=== PATIENT | female | born 1970 | race Caucasian/White ===

== ENCOUNTER 2016-09-26 07:21 | Emergency (ER) | payer BC ==
[~2016-09-26] VITALS: Ht 175.3 cm; Wt 95.2 kg
[2016-09-26 07:34] VITALS: TEMP 36.5; Ht 175.3 cm; Wt 95.2 kg
[2016-09-26] MEDS ORDERED: OMEG10007 PO (07:47)
[2016-09-26] MEDS ORDERED: SIMV5TAB2 PO (07:47)
[2016-09-26] MEDS ORDERED: ALUMINUM/MAGNESIUM/SIMETH (MAALOX MAX) 30 ML UDC PO STA (08:13)
[2016-09-26] MEDS ORDERED: MoRPHine SULFATE 10 MG/ML CARP/VIAL IV PRN (08:15)
[2016-09-26] MEDS ORDERED: ONDANSETRON INJ 2 MG/ML 2 ML VIAL IV PRN (08:15)
[2016-09-26 08:31] LABS: HEMATOCRIT 37.8 % (37-47); MEAN CELL VOLUME 76.5 fL (80-100); MEAN CORPUSCULAR HEMOGLOBIN 26.7 pg (25-34); MEAN CORPUSCULAR HGB CONC 34.9 g/dl (32-36); PLATELET COUNT 430 K/uL (130-400); RED BLOOD COUNT 4.94 M/uL (4.2-5.4); WHITE BLOOD COUNT 9.86 K/uL (4.8-10.8)
--- NOTE | 2016-09-26 08:31 | EMERGENCY ROOM VISIT NOTE ---
History Report prepared by Irene: Mateo Nunez Under the Supervision of: Dr. Bennie Gallego M.D. First contact with patient: 08:10 Chief Complaint: VOMITING Stated Complaint: HEART BURN,VOMITING Nursing Triage Summary: abd pain, nausea, vomiting. States ate [place] food yesterday, not sure if it is related to the food or something else per pt. History of Present Illness The patient is a 46 year old female who presents to the Emergency Room with complaints constant burning epigastric pain. The pain is consistent with heart burn. The patient experienced the worst heart burn of her life yesterday evening , which caused her to be short of breath. The pain improved on its own until later that night. She woke up in the middle of the night and experienced vomiting. The patient now has the constant abdominal pain as well as nausea. The patient does not feel burning in her chest. She does have some radiation to her back. The patient denies any melena or blood in her stools. The patient took Ranitidine, which did not help. The patient did not have any alcohol yesterday. She occasionally uses NSAIDS, but not very often. She does not have a history of bleeding disorders. Source of History: patient Onset: yesterday evening Position: abdomen (epigastrium) Quality: burning Timing: constant Associated Symptoms: + SOB, + back pain, + nausea, + vomiting, No hematochezia, No melena Review of Systems All systems have been listed, reviewed, and are negative other than those previously mentioned. Please see Additional Medical History Sheet. Past Medical & Surgical Surgical Problems: (1) Previous section Family History Diabetes mellitus Hypertension Social History Smoking Status: Never Smoker Alcohol Use: none Occupation Status: employed Current/Historical Medications Scheduled Docusate Sodium (Colace), 100 MG PO BID Fish Oil ([place]-3), 1 CAP PO DAILY Simvastatin (Zocor), Unknown Dose PO QPM Scheduled PRN Ondasetron Odt (Zofran Odt), 4 MG SL Q4 PRN for nausea Oxycodone Immediate Rel Tab (Roxicodone Ir), 1-2 TAB PO Q4H PRN for Severe Pain Allergies Coded Allergies: No Known Allergies (Unverified Allergy, Unknown, 08/29/04) Physical Exam Vital Signs Date Time Temp Pulse Resp B/P Pulse Ox O2 Delivery O2 Flow Rate FiO2 09/26/16 14:53 66 18 169/95 97 09/26/16 13:40 58 18 152/96 97 Room Air 09/26/16 12:44 72 09/26/16 12:02 75 18 139/93 100 Room Air 09/26/16 11:28 78 18 172/111 100 Room Air 09/26/16 10:12 74 18 174/95 100 Room Air 09/26/16 09:00 75 18 123/84 98 Room Air 09/26/16 08:09 71 09/26/16 08:05 74 170/98 09/26/16 07:34 36.5 83 16 191/120 100 Room Air Physical Exam GENERAL: Patient appears to be in moderate distress. Patient awake, alert, oriented x 3. Patient follows commands. Patient does not appear toxic. Patient is adequately hydrated and well-nourished. SKIN: No erythema, pallor, cyanosis or rash HEENT: Normal head, pupils equal, reactive to light and accommodation. Ears normal. Oral cavity and posterior pharynx appear normal. Neck: Without adenopathy, no neck vein distention. LUNGS: Clear to auscultation. No wheezes, no rales, no rhonchi. HEART: No murmurs. No gallops. No rubs ABDOMEN: No masses, no rebound, no hepatomegaly or splenomegaly. Vague epigastric tenderness. EXTREMITIES: No signs of trauma. No pedal or pretibial edema. No calf or thigh tenderness. NEUROLOGIC: Cranial nerves II-XII within normal limits. No gross motor sensory function deficits. Medical Decision & Procedures ER Provider Diagnostic Interpretation: US results are interpretations by the radiologist and per my review. BILIARY ULTRASOUND CLINICAL HISTORY: Right lower quadrant abdominal pain COMPARISON STUDY: No previous studies for comparison. FINDINGS: The pancreas appears sonographically normal. Multiple gallstones are visualized. The common bile duct at the upper limits of normal in size measuring 6 mm. There is no right-sided hydronephrosis. No hepatic masses are visualized. There is minimal ductal prominence at the level of the krystal hepatis IMPRESSION: 1. Cholelithiasis. 2. Minimal ductal prominence at the level of the krystal hepatis. 6 mm common bile duct. 3. Ultrasonographically normal pancreas. No hepatic masses identified. Electronically signed by: Dorian Obrien M.D. 09/26/2016 12:31 PM Dictated Date/Time: 09/26/2016 12:29 PM Laboratory Results 09/26/16 07:54 09/26/16 07:54 Test 09/26/16 07:54 09/26/16 08:33 Red Blood Count 4.94 M/uL (4.2-5.4) Mean Corpuscular Volume 76.5 fL (80-100) Mean Corpuscular Hemoglobin 26.7 pg (25-34) Mean Corpuscular Hemoglobin Concent 34.9 g/dl (32-36) RDW Standard Deviation 43.1 fL (36.4-46.3) RDW Coefficient of Variation 15.5 % (11.5-14.5) Mean Platelet Volume 9.0 fL (7.4-10.4) Anion Gap 11.0 mmol/L (3-11) Est Creatinine Clear Calc Drug Dose 100.5 ml/min Estimated GFR () 94.6 Estimated GFR (Non- 81.6 BUN/Creatinine Ratio 10.8 (10-20) Calcium Level 9.1 mg/dl (8.5-10.1) Total Bilirubin 1.2 mg/dl (0.2-1) Aspartate Amino Transf (AST/SGOT) 365 U/L (15-37) Alanine Aminotransferase (ALT/SGPT) 390 U/L (12-78) Alkaline Phosphatase 93 U/L (45-117) Total Protein 7.5 gm/dl (6.4-8.2) Albumin 4.0 gm/dl (3.4-5.0) Globulin 3.5 gm/dl (2.5-4.0) Albumin/Globulin Ratio 1.1 (0.9-2) Lipase 219 U/L (73-393) Urine Color DK YELLOW Urine Appearance CLEAR (CLEAR) Urine pH 5.5 (4.5-7.5) Urine Specific [place] 1.021 (1.000-1.030) Urine Protein 1+ (NEG) Urine Glucose (UA) 2+ (NEG) Urine Ketones 2+ (NEG) Urine Occult Blood 3+ (NEG) Urine Nitrite NEG (NEG) Urine Bilirubin NEG (NEG) Urine Urobilinogen NEG (NEG) Urine Leukocyte Esterase NEG (NEG) Urine WBC (Auto) 1-5 /hpf (0-5) Urine RBC (Auto) 10-30 /hpf (0-4) Urine Hyaline Casts (Auto) 1-5 /lpf (0-5) Urine Epithelial Cells (Auto) >30 /lpf (0-5) Urine Bacteria (Auto) 1+ (NEG) Urine Test NEG (NEG) Laboratory results as stated above per my review. Medications Administered Medications (Trade) Dose Ordered Sig/Mike Route Start Time Stop Time Status Last Admin Dose Admin Al Hydrox/Mg Hydrox/Simethicone (Maalox Max Susp) 30 ml NOW STAT PO 09/26/16 08:13 09/26/16 08:20 DC 09/26/16 08:29 30 ML Morphine Sulfate (MoRPHine SULFATE INJ) 6 mg PRN PRN IV 09/26/16 08:15 10/10/16 08:14 09/26/16 08:29 6 MG Ondansetron HCl (Zofran Inj) 4 mg Q4H PRN IV 09/26/16 08:15 10/26/16 08:14 09/26/16 08:29 4 MG Morphine Sulfate (MoRPHine SULFATE INJ) 4 mg STK-MED ONCE .ROUTE 09/26/16 11:30 09/26/16 11:31 DC 09/26/16 11:40 4 MG Morphine Sulfate 2 mg 2 mg STK-MED ONCE .ROUTE 09/26/16 11:30 09/26/16 11:31 DC 09/26/16 11:40 2 MG Sodium Chloride (Nss 1000ml) 1,000 ml @ 1,000 mls/hr Q1H ONCE IV 09/26/16 12:45 09/26/16 13:44 DC 09/26/16 12:52 1,000 MLS/HR ED Course 0812: Past medical records reviewed. The patient was evaluated in room B9. A complete history and physical examination was performed. 0813: Maalox Max 30 ml PO. 0815: Zofran 4 mg IV, Morphine Sulfate 6 mg IV. 1245: NSS 1000 ml @ 1000 mls/hr. 1330: The patient's pain is now 5/10. She will be going to ultrasound shortly. 1304: The patient is feeling a little better. I discussed the possibility of a cholecystectomy. 1430: The [place] Prescription Drug Monitoring Program was reviewed regarding this patient. No issues identified. 1435: Upon reevaluation, the patient appeared to have improvement of her symptoms. I discussed today's findings with her. She verbalized agreement of the treatment plan. She was discharged home. Medical Decision I considered multiple diagnoses including GERD, esophagitis, peptic/gastric ulcer disease, gastritis, anemia, pancreatitis. Multiple labs, urinalysis and imaging were obtained. The patient has some blood in her urine. Liver enzymes are elevated. The patient has stones in her gallbladder. I believe she has cholelithiasis. She does not want to have her gallbladder taken out today but I believe that she will most likely require that procedure in the near future. In the meantime, she is to avoid any fried or fatty foods. She will be given pain medication to be taken when necessary. She is to follow-up with her family physician this coming week. [place] Drug Monitoring Program Search Results: patient reviewed within database, no issues identified Impression Primary Impression: Cholelithiasis Scribe Attestation The scribe's documentation has been prepared under my direction and personally reviewed by me in its entirety. I confirm that the note above accurately reflects all work, treatment, procedures, and medical decision making performed by me. Departure Information Dispostion Home / Self-Care Prescriptions Ondasetron Odt (ZOFRAN ODT) 4 Mg Tab 4 MG SL Q4 Y for nausea, #10 TAB Prov: Bennie Gallego M.D. 09/26/16 Docusate Sodium (COLACE) 100 Mg Cap 100 MG PO BID, #20 CAP Prov: Bennie Gallego M.D. 09/26/16 Oxycodone Immediate Rel Tab (ROXICODONE IR) 5 Mg Tab 1-2 TAB PO Q4H Y for Severe Pain, #20 TAB Prov: Bennie Gallego M.D. 09/26/16 Referrals No Doctor, Assigned (PCP) Forms HOME CARE DOCUMENTATION FORM, IMPORTANT VISIT INFORMATION Patient Instructions My [facility] [employer] Additional Instructions Drink extra fluids 1-2 OxyIR every 4 hours as needed for moderate to severe pain. 1 Colace twice a day 1 Zofran every 4 hours as needed for nausea. Avoid all fried or fatty foods. Follow-up with your family physician this coming week.
[2016-09-26 08:38] LABS: BUN/CREATININE RATIO 10.8 (10-20); CALCIUM 9.1 mg/dl (8.5-10.1); CREATININE 0.85 mg/dl (0.60-1.20); POTASSIUM 3.5 mmol/L (3.5-5.1)
[2016-09-26 08:41] LABS: ALB/GLOB RATIO 1.1 (0.9-2)
[2016-09-26 08:51] LABS: URINE APPEARANCE CLEAR (CLEAR); URINE BILIRUBIN NEG (NEG); URINE COLOR DK YELLOW; URINE NITRITE NEG (NEG); URINE PH 5.5 (4.5-7.5); URINE SPECIFIC GRAVITY 1.021 (1.000-1.030); UROBILINOGEN NEG (NEG)
[2016-09-26 08:57] LABS: MANUAL MICROSCOPIC REQUIRED? NO; REVIEW REQ? NO; URINE EPITHELIAL CELL AUTO >30 /lpf (0-5); ZZUR CULT IF INDIC CLEAN CATCH YES
[2016-09-26] MEDS ORDERED: MoRPHine SULFATE 2 MG/ML CARP ONE (11:30)
[2016-09-26] MEDS ORDERED: MoRPHine SULFATE 4 MG/ML 1 ML CARP\\VIAL ONE (11:30)
--- NOTE | 2016-09-26 12:33 | DIAGNOSTIC IMAGING REPORT ---
BILIARY ULTRASOUND CLINICAL HISTORY: Right lower quadrant abdominal pain COMPARISON STUDY: No previous studies for comparison. FINDINGS: The pancreas appears sonographically normal. Multiple gallstones are visualized. The common bile duct at the upper limits of normal in size measuring 6 mm. There is no right-sided hydronephrosis. No hepatic masses are visualized. There is minimal ductal prominence at the level of the krystal hepatis IMPRESSION: 1. Cholelithiasis. 2. Minimal ductal prominence at the level of the krystal hepatis. 6 mm common bile duct. 3. Ultrasonographically normal pancreas. No hepatic masses identified. Electronically signed by: Dorian Obrien M.D. 09/26/2016 12:31 PM Dictated Date/Time: 09/26/2016 12:29 PM
[2016-09-26] MEDS ORDERED: SODIUM CHLORIDE 0.9% 1000ML 1,000 ML IV ONE (12:45)
[2016-09-26] MEDS ORDERED: OXYC1TAB3 PO (14:27)
[2016-09-26] MEDS ORDERED: DOCU-94 PO (14:41)
[2016-09-26] MEDS ORDERED: ONDA4TAB10 SL (14:41)
[2016-09-26 14:53] VITALS: BP 169/95; PULSE 66; O2SAT 97
== END 2016-09-26 14:55 | disposition home or self-care (01) ==
LOC: C.EDB 07:22
DX: K80.20 Calculus of gallbladder without cholecystitis without obstruction (principal)

== ENCOUNTER 2016-09-29 10:50 | Emergency (ER) | payer BC ==
[~2016-09-29] VITALS: Ht 167.6 cm; Wt 94.9 kg
[~2016-09-29 10:50] MED LIST: DOCU-94 PO; OMEG10007 PO; ONDA4TAB10 SL; OXYC1TAB3 PO; SIMV5TAB2 PO
[2016-09-29 10:59] VITALS: TEMP 37.3; Ht 167.6 cm; Wt 94.9 kg
[2016-09-29] MEDS ORDERED: ACET-749 PO ×2 (11:20→15:41)
[2016-09-29] MEDS ORDERED: SODIUM CHLORIDE 0.9% 1000ML 1,000 ML IV STA (11:35)
[2016-09-29 11:47] LABS: BASO % 0.3 %; BASO ABS # 0.03 K/uL (0-0.2); COMPLETE YES; EOS % 2.5 %; HEMATOCRIT 38.5 % (37-47); IG% 0.3 %; LYMPH % 15.1 %; LYMPH ABS # 1.79 K/uL (1.2-3.4); MEAN CELL VOLUME 78.1 fL (80-100); MEAN CORPUSCULAR HGB CONC 34.5 g/dl (32-36); MEAN PLATELET VOLUME 8.8 fL (7.4-10.4); MONO % 6.7 %; NEUT % 75.1 %; PLATELET COUNT 459 K/uL (130-400); RED BLOOD COUNT 4.93 M/uL (4.2-5.4); WHITE BLOOD COUNT 11.82 K/uL (4.8-10.8)
[2016-09-29] MEDS ORDERED: ONDANSETRON INJ 2 MG/ML 2 ML VIAL IV STA (11:49)
[2016-09-29] MEDS ORDERED: MoRPHine SULFATE 10 MG/ML CARP/VIAL IV STA (11:49)
[2016-09-29 12:11] LABS: BUN/CREATININE RATIO 8.1 (10-20); CALCIUM 9.6 mg/dl (8.5-10.1); CREATININE 0.81 mg/dl (0.60-1.20); POTASSIUM 3.6 mmol/L (3.5-5.1)
[2016-09-29] MEDS ORDERED: OPTIRAY 320 IV PRN (12:15)
--- NOTE | 2016-09-29 12:33 | EMERGENCY ROOM VISIT NOTE ---
History Report prepared by Irene: James Ko Under the Supervision of: Dr. Javier Shrestha M.D. First contact with patient: 11:15 Chief Complaint: ABDOMINAL PAIN Stated Complaint: GALLBLADDER PAIN Nursing Triage Summary: Was here wednesday for "gallbladder issues". Pt cannot control pain with prescribed pain meds. Has an appt to consult with surgeon. Abd pain- epigastric. Nausea. History of Present Illness The patient is a 46 year old female who presents to the Emergency Room with complaints of bilateral upper abdominal pain starting a few days ago and worsening this morning. The patient was evaluated in the Emergency Room 3 days ago and was diagnosed with gallstones. She is scheduled to have a surgical consult tomorrow. She currently rates a pain intensity of 8/10. She reports pain radiation to the back. She was prescribed Oxycodone in the Emergency Room but has not been taking it. She has been taking Tylenol with codeine with some relief. The patient denies fevers, chills, or any other complaints. Source of History: patient Onset: a few days ago Position: abdomen (bilateral upper) Symptom Intensity: 8/10 Timing: worsening Modifying Factors (Relieving): other (Tylenol with codeine with some relief) Associated Symptoms: No chills, No fevers Review of Systems See HPI for pertinent positives & negatives. A total of 10 systems reviewed and were otherwise negative. Past Medical & Surgical Surgical Problems: (1) Previous section Family History Diabetes mellitus Hypertension Social History Smoking Status: Former Smoker Alcohol Use: none Occupation Status: employed Current/Historical Medications Scheduled Docusate Sodium (Colace), 100 MG PO BID Fish Oil ([place]-3), 1 CAP PO DAILY Simvastatin (Zocor), Unknown Dose PO QPM Scheduled PRN Acetaminophen/Codeine (Tylenol W/Codeine #3), 1 TAB PO for Pain Acetaminophen/Codeine (Tylenol W/Codeine #3), 1-2 TABS PO Q6 PRN for Pain Ondasetron Odt (Zofran Odt), 4 MG SL Q4 PRN for nausea Allergies Coded Allergies: Oxycodone (Verified Allergy, Unknown, ., 09/29/16) Physical Exam Vital Signs Date Time Temp Pulse Resp B/P Pulse Ox O2 Delivery O2 Flow Rate FiO2 09/29/16 15:57 77 18 136/96 97 Room Air 09/29/16 14:47 71 18 146/97 99 Room Air 09/29/16 12:51 96 16 147/92 98 Room Air 09/29/16 11:57 78 09/29/16 10:59 37.3 101 17 154/102 98 Room Air Physical Exam GENERAL: Patient is a healthy-appearing well-nourished HEAD: Normocephalic atraumatic EYES: Ocular movements intact pupils equal and react to light OROPHARYNX mucous membranes are moist no exudates present no erythema or edema present NECK: Supple no nuchal rigidity CHEST: Good equal expansion LUNGS: Clear and equal to auscultation CARDIAC: Normal S1 and S2 ABDOMEN: Soft, minimal tenderness in right upper quadrant, no guarding BACK: No CVA tenderness EXTREMITIES: No pain upon palpation normal muscle strength in all groups no clubbing cyanosis or edema NEURO: Patient is following commands is answering questions appropriately. Alert and oriented x3 Cranial Nerves 2-12 grossly intact Medical Decision & Procedures ER Provider Diagnostic Interpretation: CT and US results as stated below per my review and radiologist interpretation: ABDOMINAL ULTRASOUND, RIGHT UPPER QUADRANT HISTORY: Right upper quadrant abdominal pain.. COMPARISON: Abdominal ultrasound 09/26/2016. FINDINGS: Pancreas: The pancreas demonstrates a normal echotexture. Liver: The liver slightly heterogeneous. However, no distinct masses are identified. Gallbladder: No gallbladder wall thickening. Multiple stones filling the gallbladder. The dominant stone measures 2.3 cm. CBD: 5 mm. Right kidney: No hydronephrosis. IMPRESSION: Cholelithiasis. No gallbladder wall thickening. Electronically signed by: Bayron Armstrong M.D. 09/29/2016 12:33 PM Dictated Date/Time: 09/29/2016 12:26 PM Laboratory Results 09/29/16 11:15 Red Blood Count 4.93, Mean Corpuscular Volume 78.1, Mean Corpuscular Hemoglobin 27.0, Mean Corpuscular Hemoglobin Concent 34.5, Mean Platelet Volume 8.8, Neutrophils (%) (Auto) 75.1, Lymphocytes (%) (Auto) 15.1, Monocytes (%) (Auto) 6.7, Eosinophils (%) (Auto) 2.5, Basophils (%) (Auto) 0.3, Neutrophils # (Auto) 8.87, Lymphocytes # (Auto) 1.79, Monocytes # (Auto) 0.79, Eosinophils # (Auto) 0.30, Basophils # (Auto) 0.03 09/29/16 11:15 Test 09/29/16 11:15 09/29/16 12:50 White Blood Count 11.82 K/uL (4.8-10.8) Red Blood Count 4.93 M/uL (4.2-5.4) Hemoglobin 13.3 g/dL (12.0-16.0) Hematocrit 38.5 % (37-47) Mean Corpuscular Volume 78.1 fL (80-100) Mean Corpuscular Hemoglobin 27.0 pg (25-34) Mean Corpuscular Hemoglobin Concent 34.5 g/dl (32-36) Platelet Count 459 K/uL (130-400) Mean Platelet Volume 8.8 fL (7.4-10.4) Neutrophils (%) (Auto) 75.1 % Lymphocytes (%) (Auto) 15.1 % Monocytes (%) (Auto) 6.7 % Eosinophils (%) (Auto) 2.5 % Basophils (%) (Auto) 0.3 % Neutrophils # (Auto) 8.87 K/uL (1.4-6.5) Lymphocytes # (Auto) 1.79 K/uL (1.2-3.4) Monocytes # (Auto) 0.79 K/uL (0.11-0.59) Eosinophils # (Auto) 0.30 K/uL (0-0.5) Basophils # (Auto) 0.03 K/uL (0-0.2) RDW Standard Deviation 44.2 fL (36.4-46.3) RDW Coefficient of Variation 15.4 % (11.5-14.5) Immature Granulocyte % (Auto) 0.3 % Immature Granulocyte # (Auto) 0.04 K/uL (0.00-0.02) Anion Gap 13.0 mmol/L (3-11) Est Creatinine Clear Calc Drug Dose 99.6 ml/min Estimated GFR () 100.2 Estimated GFR (Non- 86.5 BUN/Creatinine Ratio 8.1 (10-20) Calcium Level 9.6 mg/dl (8.5-10.1) Total Bilirubin 0.6 mg/dl (0.2-1) Direct Bilirubin 0.1 mg/dl (0-0.2) Aspartate Amino Transf (AST/SGOT) 21 U/L (15-37) Alanine Aminotransferase (ALT/SGPT) 109 U/L (12-78) Alkaline Phosphatase 79 U/L (45-117) Total Protein 7.6 gm/dl (6.4-8.2) Albumin 3.8 gm/dl (3.4-5.0) Lipase 112 U/L (73-393) Urine Color YELLOW Urine Appearance CLEAR (CLEAR) Urine pH 5.5 (4.5-7.5) Urine Specific [place] 1.001 (1.000-1.030) Urine Protein NEG (NEG) Urine Glucose (UA) NEG (NEG) Urine Ketones NEG (NEG) Urine Occult Blood 1+ (NEG) Urine Nitrite NEG (NEG) Urine Bilirubin NEG (NEG) Urine Urobilinogen NEG (NEG) Urine Leukocyte Esterase NEG (NEG) Urine WBC (Auto) 1-5 /hpf (0-5) Urine RBC (Auto) 0-4 /hpf (0-4) Urine Hyaline Casts (Auto) 0 /lpf (0-5) Urine Epithelial Cells (Auto) 5-10 /lpf (0-5) Urine Bacteria (Auto) NEG (NEG) Labs reviewed by ED physician. Medications Administered Medications (Trade) Dose Ordered Sig/Mike Route Start Time Stop Time Status Last Admin Dose Admin Sodium Chloride (Nss 1000ml) 1,000 ml @ 999 mls/hr Q1H1M STAT IV 09/29/16 11:35 09/29/16 12:35 DC 09/29/16 11:35 999 MLS/HR Morphine Sulfate (MoRPHine SULFATE INJ) 10 mg NOW STAT IV 09/29/16 11:49 09/29/16 11:51 DC 09/29/16 12:03 10 MG Ondansetron HCl (Zofran Inj) 4 mg NOW STAT IV 09/29/16 11:49 09/29/16 11:51 DC 09/29/16 12:03 4 MG ED Course 1115: Past medical records reviewed. The patient was evaluated in room C07. A complete history and physical examination was performed. 1135: Sodium Chloride 1000 ml @ 999 mls/hr IV 1149: Zofran Inj 4 mg IV, Morphine Sulfate 10 mg IV Medical Decision Differential diagnosis: Etiologies such as appendicitis, diverticulitis, PUD, biliary pathology, UTI, pancreatitis, obstruction, mesenteric ischemia, aortic pathology, infections, inflammatory bowel disease, renal colic, as well as others were entertained. This is a 46-year-old female who presents emergency department complaining of right upper quadrant abdominal pain that has been ongoing for the past 3 days. An IV was established, the patient given normal saline bolus, 10 modems morphine. Repeat examination revealed improvement the patient's symptoms. The patient does have a slight elevation in her white blood count however has no evidence of acute cholecystitis on either ultrasound or CAT scan. Based on these findings I felt that the patient can be safely discharged home for follow- up with her surgical appointment tomorrow. The patient was tolerating fluids. Serial abdominal examinations were performed on the patient in the emergency department and at no time did the patient exhibited a surgical abdomen. Patient was in agreement with the treatment plan. Impression Primary Impression: Abdominal pain Scribe Attestation The scribe's documentation has been prepared under my direction and personally reviewed by me in its entirety. I confirm that the note above accurately reflects all work, treatment, procedures, and medical decision making performed by me. Departure Information Dispostion Home / Self-Care Prescriptions Acetaminophen/Codeine (Tylenol W/Codeine #3) 300 Mg/30 Mg Tab 1-2 TABS PO Q6 Y for Pain, #30 TAB Prov: Javier Shrestha MD 09/29/16 Referrals Lolis Oden D.O. (PCP) Patient Instructions My [facility] Problem Qualifiers Primary Impression: Abdominal pain Abdominal location: right upper quadrant Qualified Codes: R10.11 - Right upper quadrant pain
[2016-09-29 13:39] LABS: URINE APPEARANCE CLEAR (CLEAR); URINE BILIRUBIN NEG (NEG); URINE COLOR YELLOW; URINE NITRITE NEG (NEG); URINE PH 5.5 (4.5-7.5); URINE SPECIFIC GRAVITY 1.001 (1.000-1.030); UROBILINOGEN NEG (NEG)
[2016-09-29 13:53] LABS: MANUAL MICROSCOPIC REQUIRED? NO; REVIEW REQ? NO
--- NOTE | 2016-09-29 15:27 | DIAGNOSTIC IMAGING REPORT ---
CT ABD/PELVIS IV AND ORAL CONT CLINICAL HISTORY: Right upper quadrant abdominal pain. COMPARISON STUDY: Abdominal ultrasound dated 09/29/2016 TECHNIQUE: Following the IV administration of 92 mL of Optiray-320, CT scan of the abdomen and pelvis was performed from the lung bases to the proximal femurs. Images are reviewed in the axial, sagittal, and coronal planes. IV contrast was administered without complication. CT DOSE: 1071.72 mGycm FINDINGS: Lower chest: There are bibasilar opacities right greater than left. While likely atelectatic, an inflammatory process cannot be excluded.. Liver: There is hepatic steatosis. No focal masses are visualized. Gallbladder: Cholelithiasis. No significant gallbladder wall thickening. Spleen: Normal in size and attenuation. Pancreas: Unremarkable. Adrenal glands: Unremarkable. Kidneys: There is symmetric renal cortical enhancement. The kidneys are normal in size without hydronephrosis. Bowel: There are no transition zones indicate bowel obstruction. The appendix appears normal. There are scattered colonic diverticula present. There is no acute diverticulitis. Peritoneum: There is no intraperitoneal free air or abdominal ascites. Vasculature: The abdominal aorta is normal in course and caliber. Adenopathy: Peripancreatic/celiac lymph nodes are at the upper limits of normal in size. Pelvic viscera: The bladder, and pelvic viscera are unremarkable. Skeletal structures: No destructive lesions are visualized. There is a grade 1 spondylolisthesis of L4 on L5. There is fragmentation of the right inferior L4 articulating process. This is felt to be chronic. IMPRESSION: 1. Cholelithiasis. No evidence of significant ductal dilatation 2. Peripancreatic and celiac lymph nodes at the upper limits of normal in size 3. No evidence of bowel obstruction. No evidence of free air 4. Normal appendix 5. Diverticulosis. No evidence of acute peridiverticular inflammatory change 6. Mild hepatic steatosis 7. Bibasal airspace opacities, likely atelectatic although an inflammatory process could appear similar Electronically signed by: Dorian Obrien M.D. 09/29/2016 3:25 PM Dictated Date/Time: 09/29/2016 3:18 PM
[2016-09-29 15:57] VITALS: BP 136/96; PULSE 77; O2SAT 97
== END 2016-09-29 16:07 | disposition home or self-care (01) ==
LOC: C.EDB 10:52 → C.EDC 16:07
DX: R10.10 Upper abdominal pain, unspecified (principal); K80.20 Calculus of gallbladder without cholecystitis without obstruction; Z87.891 Personal history of nicotine dependence